=== PATIENT | female | born 1970 | race Caucasian/White ===

== ENCOUNTER → 2017-02-12 | Outpatient (CLI) | payer BC ==
--- NOTE | 2017-02-12 15:47 | MAMMOGRAPHY REPORT ---
BILATERAL DIGITAL DIAGNOSTIC MAMMOGRAM TOMOSYNTHESIS WITH CAD AND TARGETED LEFT ULTRASOUND: 02/12/2017 CLINICAL HISTORY: The patient reports pain involving her left breast a few days ago as well as associ ated skin erythema. The patient reports thickening at the area of the erythema without a discrete pa lpable lump. She also reports a possible left axillary lump. She has been on antibiotics for approx imately 2 days. TECHNIQUE: Breast tomosynthesis in addition to standard 2D mammography was performed. Current study was also evaluated with a Computer Aided Detection (CAD) system. Bilateral CC and MLO 2-D and tomosy nthesis images were obtained. Tomosynthesis images were obtained of the implant displaced views only . COMPARISON: Comparison is made to exams dated: 06/19/2011 mammogram - [facility] an d 07/17/2008. BREAST COMPOSITION: The tissue of both breasts is heterogeneously dense, which may obscure small mas ses. FINDINGS: A square marker winter the site of pain and erythema in the left 6:00 breast. There is mil d skin thickening in this region mammographically, best seen on the implant displaced MLO view, with no discrete mass in the underlying breast parenchyma noted. The remainder of both breasts are stable compared to prior exams, without suspicious masses, calcifications, or areas of architectural distor tion noted. Bilateral saline implants are stable in appearance. Targeted ultrasound was performed of the area of erythema and thickening pointed out by the patient, in the left inferior breast from approximately 5 to 7:00 periareolar region. In this region there is mild skin thickening noted, with skin thickening measuring approximately 4 mm in thickness at 6:00. The skin thickening is mildly heterogeneous on ultrasound and contains 1 oval anechoic cystic portio n measuring approximately 5 mm in the left 6:00 breast. No suspicious masses or other suspicious abn ormalities are seen within the underlying breast parenchyma. Given the clinical history of pain in t his region, findings likely represent cellulitis. Targeted ultrasound was performed of the area of the palpable lump pointed out by the patient in the left axillary region. In this region there is a mildly prominent axillary lymph node which measures 1.2 x 0.7 x 1.3 cm, which has a normal echogenic fatty hilum with a mildly thickened hypoechoic dc x measuring 3.5 mm. This likely corresponds with the palpable lump and is likely a reactive lymph no de related to the left breast inflammation. A few other smaller morphologically normal left axillary lymph nodes were also seen during the exam which abnormal fatty manda and normal cortical thicknesses . IMPRESSION: ACR-BI-RADS CATEGORY 3: PROBABLY BENIGN, TARGETED ULTRASOUND ACR-BI-RADS CATEGORY 3: PRO BABLY BENIGN 1. Mild skin thickening in the left inferior periareolar breast mammographically and sonographically at the site of skin erythema, without a suspicious mass or abscess noted in the underlying breast pa renchyma. Given the clinical history, findings likely represent cellulitis/mastitis. Recommend clin ical follow-up. If symptoms including skin erythema do not resolve on antibiotics, then skin punch b iopsy by a surgeon is recommended to exclude the possibility of inflammatory breast cancer. The heaven ent reports she has a follow-up next week with Dr. Seymour. 2. No mammographic evidence of malignancy in the right breast. 3. A palpable lump in the left axilla corresponds with a mildly thickened left axillary lymph node w hich is probably benign and likely reactive related to the left breast inflammation. Recommend clini steve follow-up. The patient has been verbally notified of the results. Approximately 10% of breast cancers are not detected with mammography. A negative mammographic report should not delay biopsy if a clinically suggestive mass is present. Amie Rowe M.D. ah/:02/12/2017 15:31:38 Area Loss Prevention Manager: Kanwal GREEN(Mary)(Deshawn), [facility] letter sent: Follow Up Recommended 3 BI-RADS Code: ACR-BI-RADS Category 3: Probably Benign Ultrasound BI-RADS: ACR-BI-RADS Category 3: Pr obably Benign
== END | disposition home or self-care (01) ==
LOC: C.MAMM 13:58
PROVIDERS: ATTEND Obstetrics & Gynecology
DX: N64.4 Mastodynia (principal); Z98.82 Breast implant status